=== PATIENT | male | born 1985 | race African-American/Black ===

== ENCOUNTER 2018-09-29 19:36 | Emergency (ER) | payer OTHER ==
[~2018-09-29] VITALS: Ht 177.8 cm; Wt 69.1 kg
[2018-09-29] MEDS ORDERED: IBUP-1022 PO (21:30)
[2018-09-29] MEDS ORDERED: NORCO 5/325MG TABLET (BULK FOR ED) PO ONE (21:30)
[2018-09-29 21:48] VITALS: BP 120/80
--- NOTE | 2018-09-30 00:57 | REP ---
Clinical: Trauma. Technique: Frontal view of the chest with multiple views of the left hemithorax. Five total views. Findings: Frontal view of the chest demonstrates no acute cardiopulmonary process. Multiple views of the left hemithorax demonstrates no obvious acute rib fracture or pathology. Impression: Normal left rib series Electronically Signed by Eugene Rhoades MD 09/30/2018 12:48 A
== END 2018-09-29 21:49 | disposition home or self-care (01) ==
LOC: M ED 19:36
DX: S20.212A Contusion of left front wall of thorax, initial encounter (principal); W01.198A Fall on same level from slipping, tripping and stumbling with subsequent striking against other object, initial encounter; Y92.138 Other place on military base as the place of occurrence of the external cause; Y93.A5 Activity, obstacle course; Y99.1 Military activity

== ENCOUNTER 2018-10-16 15:51 | Emergency (ER) | payer OTHER ==
[~2018-10-16] VITALS: Ht 177.8 cm; Wt 69.1 kg
[2018-10-16 15:51] VITALS: BP 130/67
[~2018-10-16 15:51] MED LIST: IBUP-1022 PO
[2018-10-16] MEDS ORDERED: KEFL500C17 PO (17:27)
[2018-10-16] MEDS ORDERED: NEOSPORIN TOP OINT 15GM TOP ONE (17:30)
--- NOTE | 2018-10-18 08:38 | REP ---
The left knee five view : There is no fracture or dislocation. Mineralization and joint spaces are normal. There are no calcifications or foreign bodies. Impression: Negative left knee . Electronically Signed by Rivera Mayberry MD 10/16/2018 04:57 P
--- NOTE | 2018-10-18 08:38 | REP ---
Left ribs for views: There is no rib fracture or other rib abnormality. PA chest: There are no comparisons. There is no pneumothorax, hemothorax or pulmonary contusion. Lung vaughn are clear. Cardiac size is normal. The ajay, mediastinum, skeletal structures are unremarkable. Impression: Negative PA chest. Electronically Signed by Rivera Mayberry MD 10/16/2018 04:58 P
== END 2018-10-16 17:40 | disposition home or self-care (01) ==
LOC: M ED 15:51
DX: S80.02XA Contusion of left knee, initial encounter (principal); S80.212A Abrasion, left knee, initial encounter; S20.212A Contusion of left front wall of thorax, initial encounter; Y04.8XXA Assault by other bodily force, initial encounter; Y92.138 Other place on military base as the place of occurrence of the external cause